=== PATIENT | female | born 1955 | race Caucasian/White ===

== ENCOUNTER → 2017-02-20 | Outpatient (CLI) | payer OTHER ==
[~2017-02-20] MED LIST: AMLO5TAB2 PO; ASPI-515 PO; CELE200C PO; CHOL20002 PO; CYAN1TAB5 PO; DIAZ5TAB PO; DOCU-30 PO; GLUC-34 PO; LIDOCAINE TP; MELA1TAB22 PO; OMEP-110 PO; ONDA4TAB7 PO; OXYC-302 PO; OXYC5CAP4 PO; TAMO20TA PO; TRAM50TA2 PO; VALS320T2 PO; [UNRECOGNIZED DRUG - OTHER] TP; turmeric/curcumin PO
== END | disposition home or self-care (01) ==
LOC: STAR 05:52
PROVIDERS: ATTEND Orthopaedic Surgery
DX: Z01.818 Encounter for other preprocedural examination (principal); R94.31 Abnormal electrocardiogram [ECG] [EKG]; Z96.652 Presence of left artificial knee joint
CPT/HCPCS: 87081; 93005

== ENCOUNTER 2017-02-25 05:31 | Inpatient (IN) | payer OTHER ==
[~2017-02-25] VITALS: Ht 172.7 cm; Wt 145.4 kg
[~2017-02-25 05:31] MED LIST changes: -ASPI-515 PO; -CELE200C PO; -DIAZ5TAB PO; -DOCU-30 PO; -ONDA4TAB7 PO; -OXYC5CAP4 PO; -TRAM50TA2 PO
[2017-02-25] MEDS ORDERED: VANCOMYCIN PER PHARMACY MC STA (06:08)
[2017-02-25] MEDS ORDERED: LACTATED RINGERS 1,000 ML IV SCH (06:27)
[2017-02-25 06:30] VITALS: BP 134/88
[2017-02-25] MEDS ORDERED: VANCOMYCIN 2,000 MG in SODIUM CHLORIDE 0.9% 500 ML IV ONE (06:30)
[2017-02-25] MEDS ORDERED: LIDOCAINE 1%, 2ML SQ PRN (06:30)
[2017-02-25] MEDS ORDERED: OxyconTIN ER 10 MG TAB.ER PO SCH (06:30)
[2017-02-25] MEDS ORDERED: MIDAZOLAM 1 MG/ML, 2ML ONE (06:35)
[2017-02-25] MEDS ORDERED: FENTANYL PF 250 MCG/5ML ONE (06:35)
[2017-02-25] MEDS ORDERED: KETOROLAC 60 MG/2 ML ONE (06:39)
[2017-02-25] MEDS ORDERED: TRANEXAMIC ACID 100 MG/ML, 10ML ONE ×4 (06:39)
[2017-02-25] MEDS ORDERED: VANCOMYCIN 1,000 MG ONE (06:39)
[2017-02-25] MEDS ORDERED: ROPIvacaine/PF 0.2%, 20 ML ONE (06:39)
[2017-02-25] MEDS ORDERED: BUPIVACAINE/PF-EPI 0.5% 1:200K ONE (06:40)
[2017-02-25] MEDS ORDERED: SODIUM CHLORIDE 0.9% 50 ML ONE (06:40)
[2017-02-25] MEDS ORDERED: EPINEPHRINE 1 MG/ML, 1ML ONE (06:40)
[2017-02-25] MEDS ORDERED: CEFAZOLIN 1,000 MG ONE (07:20)
[2017-02-25] MEDS ORDERED: ONDANSETRON 2MG/ML, 2ML IV PRN (07:30)
[2017-02-25] MEDS: CEFAZOLIN PMX 2GM/50ML 50 ML IVPB SCH ×2 (07:30→15:15)
[2017-02-25] MEDS ORDERED: ALUMINUM/MAG/SIMETHICONE 30 ML UDC PO PRN (07:30)
[2017-02-25] MEDS ORDERED: DIAZEPAM 5 MG TABLET PO PRN (07:30)
[2017-02-25] MEDS ORDERED: HYDROmorphone 1 MG/ML, 1ML IV PRN (07:30)
[2017-02-25] MEDS ORDERED: SCOPOLAMINE PATCH, 1.5MG PATCH.TD72 TD SCH (07:30)
[2017-02-25] MEDS ORDERED: ONDANSETRON 4 MG TABLET PO PRN (07:30)
[2017-02-25] MEDS ORDERED: MAGNESIUM HYDROXIDE 8%, 30ML UDC PO PRN (07:30)
[2017-02-25] MEDS ORDERED: DIPHENHYDRAMINE 50 MG CAPSULE PO PRN (07:30)
[2017-02-25] MEDS ORDERED: PROMETHAZINE 12.5 MG SUPP PR PRN (07:30)
[2017-02-25] MEDS ORDERED: PROMETHAZINE 25 MG/ML, 1ML IM PRN (07:30)
[2017-02-25] MEDS ORDERED: BISACODYL 10 MG SUPP PR PRN (07:30)
[2017-02-25] MEDS ORDERED: ZOLPIDEM 5MG TABLET PO PRN (07:30)
[2017-02-25] MEDS ORDERED: SENNA/DOCUSATE TABLET PO PRN (07:30)
[2017-02-25] MEDS ORDERED: LABETALOL 5MG/ML, 20ML IV PRN (08:00)
[2017-02-25] MEDS ORDERED: METOCLOPRAMIDE 5 MG/ML, 2ML IV PRN (08:00)
[2017-02-25] MEDS ORDERED: hydrALAzine 20 MG/ML, 1ML IV PRN (08:00)
[2017-02-25] MEDS ORDERED: ONDANSETRON 2MG/ML, 2ML IVPush PRN (08:00)
[2017-02-25] MEDS ORDERED: FENTANYL PF 100 MCG/2ML IV PRN (08:00)
[2017-02-25] MEDS ORDERED: OXYcodone 5 MG/5 ML ORAL.SOL UDC PO PRN (08:00)
[2017-02-25] MEDS ORDERED: ACETAMINOPHEN 325 MG TABLET PO PRN (08:00)
[2017-02-25] MEDS: DOCUSATE 100 MG CAPSULE PO SCH ×2 (09:00→21:50)
[2017-02-25] MEDS: TAMSULOSIN 0.4 MG CAP.ER.24H PO SCH ×3 (09:00→13:01)
[2017-02-25] MEDS ORDERED: OXYcodone 5 MG/5 ML ORAL.SOL UDC ONE (09:53)
[2017-02-25] MEDS ORDERED: HYDROmorphone 2 MG/ML, 1ML ONE (10:01)
[2017-02-25] MEDS: HYDROmorphone 1 MG/ML, 1ML IV PRN ×2 (10:04→10:11)
[2017-02-25] MEDS ORDERED: ACETAMINOPHEN 500 MG TABLET PO ONE (11:00)
[2017-02-25] MEDS ORDERED: VANCOMYCIN PMX 1GM/200ML 200 ML IVPB ONE ×2 (11:00→19:00)
[2017-02-25] MEDS: D5%-0.45NACL+KCL 20MEQ 1,000 ML IV SCH ×2 (11:57→20:00)
[2017-02-25 13:57] VITALS: BP 138/87
[2017-02-25] MEDS: ACETAMINOPHEN 650 MG/20.3 ML UDC PO PRN ×2 (15:15→21:53)
[2017-02-25] MEDS: OXYcodone IR 5MG TABLET PO PRN ×3 (16:30→21:50)
[2017-02-25 19:42] VITALS: BP 111/72
[2017-02-26] MEDS: OXYcodone IR 5MG TABLET PO PRN ×3 (01:51→10:41)
[2017-02-26] MEDS: ACETAMINOPHEN 650 MG/20.3 ML UDC PO PRN ×3 (01:51→10:41)
[2017-02-26 02:27] VITALS: BP 123/75
[2017-02-26] MEDS: D5%-0.45NACL+KCL 20MEQ 1,000 ML IV SCH ×2 (03:26→08:35)
[2017-02-26] MEDS ORDERED: AMLODIPINE 5 MG TABLET PO ONE (03:30)
[2017-02-26] MEDS ORDERED: DEXAMETHASONE 4 MG/ML, 1ML IVPush SCH (06:00)
[2017-02-26] MEDS: TAMSULOSIN 0.4 MG CAP.ER.24H PO SCH (07:10)
[2017-02-26 07:29] VITALS: BP 113/73
[2017-02-26] MEDS ORDERED: KETOROLAC 30 MG/1 ML IV SCH (07:30)
[2017-02-26] MEDS: DOCUSATE 100 MG CAPSULE PO SCH (08:34)
[2017-02-26] MEDS ORDERED: TAMOXIFEN 10 MG TABLET PO SCH (09:00)
[2017-02-26] MEDS ORDERED: AMLODIPINE 5 MG TABLET PO SCH (09:00)
[2017-02-26] MEDS ORDERED: ASPI-515 PO (13:52)
[2017-02-26] MEDS ORDERED: CELE200C PO (13:52)
[2017-02-26] MEDS ORDERED: DOCU-30 PO (13:53)
[2017-02-26] MEDS ORDERED: DIAZ5TAB PO (13:53)
[2017-02-26] MEDS ORDERED: ONDA4TAB7 PO (13:54)
[2017-02-26] MEDS ORDERED: OXYC5CAP4 PO (13:54)
[2017-02-26] MEDS ORDERED: TRAM50TA2 PO (13:55)
[2017-02-26] MEDS ORDERED: ASPIRIN 81 MG TABLET EC PO SCH (18:00)
[2017-02-26] MEDS ORDERED: VALSARTAN 320 MG TABLET PO SCH (21:00)
[2017-02-26] MEDS ORDERED: OMEPRAZOLE 20 MG CAPSULE.DR PO SCH (21:00)
[2017-02-26] MEDS ORDERED: MELATONIN 3 MG TABLET PO SCH (21:00)
== END 2017-02-26 14:07 | disposition home or self-care (01) | DRG 470 ==
LOC: ORIP 05:31 → 4NOR 10:38 → DCLOUNGE 02-26 13:28
PROVIDERS: ADMIT Orthopaedic Surgery; ATTEND Orthopaedic Surgery
PROC: 3E0T3BZ Introduction of Anesthetic Agent into Peripheral Nerves and Plexi, Percutaneous Approach (ICD-10-PCS; 2017-02-25)
PROC: 0SRD0J9 Replacement of Left Knee Joint with Synthetic Substitute, Cemented, Open Approach (ICD-10-PCS; principal; 2017-02-25 07:30)
DX: M17.12 Unilateral primary osteoarthritis, left knee (principal); Z88.8 Allergy status to other drugs, medicaments and biological substances; K21.9 Gastro-esophageal reflux disease without esophagitis; I10 Essential (primary) hypertension
CPT/HCPCS: 36415; 85014; 85018; 87081; J0171; J0690; J1100; J1170; J1885; J2250; J2405; J2550; J2795; J3010; J3370; J3480; J7040; J7120